=== PATIENT | female | born 1950 | race Caucasian/White ===

== ENCOUNTER 2020-05-03 23:59 | Observation (INO) ==
[2020-05-04] MEDS ORDERED: Morphine Sulfate 2 MG/ML SYRINGE IVP ONE (00:19)
[2020-05-04] MEDS ORDERED: 0.9 % Sodium Chloride 1,000 ML IVC STA (00:21)
[2020-05-04 00:57] LABS: Basophils % 0.2 %; Eosinophils % 0.1 %; Hematocrit 37.9 % (35.3-44.9); Hemoglobin 11.6 g/dL (11.5-15.4); Immature Granulocytes % 0.3 % (0-4); Lymphocytes # 2.7 K/mcL (0.6-4.6); Lymphocytes % 26.5 %; Mean Corpuscular HGB Conc 30.6 g/dL (31.6-35.5); Mean Corpuscular Volume 91.5 fL (83.0-100.0); Monocytes # 1.2 K/mcL (0.0-1.3); Monocytes % 11.6 %; Neutrophils # 6.3 K/mcL (1.6-8.9); Platelet Count 274 K/mcL (140-400); Red Blood Count 4.14 M/mcL (3.82-4.97); Red Cell Distribution Width 13.9 % (11.5-14.5); Segmented Neutrophils % 61.3 %; White Blood Count 10.3 K/mcL (4.3-11.1)
[2020-05-04 01:10] LABS: BUN/Creatinine Ratio 18 (6-26); Blood Urea Nitrogen 14 mg/dL (8-23); Calcium 9.3 mg/dL (8.6-10.3); Carbon Dioxide 27 mEq/L (23-29); Chloride 99 mEq/L (98-107); Glucose 127 mg/dL (70-105); Osmolality,Calculated 280 (280-300); Potassium 3.8 mEq/L (3.5-5.1); Sodium 134 mEq/L (136-145); eGFR For African Americans > 60 (> 60); eGFR For Non-African Americans > 60 (> 60)
[2020-05-04] MEDS ORDERED: Isovue-370 500 ML BOTTLE IVP ONE (02:35)
[2020-05-04] MEDS ORDERED: *HR* FentaNYL (PF) 100 MCG/2 ML VIAL IVP ONE (02:40)
[2020-05-04 03:22] LABS: INR 1.2; Prothrombin Time 13.7 Seconds (9.4-12.1)
[2020-05-04 03:25] LABS: Activated Partial Thrombo Time 26.8 Seconds (26.0-36.0)
[2020-05-04] MEDS ORDERED: *HR* Rivaroxaban 15 MG TABLET PO ONE (04:58)
[2020-05-04] MEDS ORDERED: Naloxone 0.4 MG/ML INJ IVP PRN (06:12)
[2020-05-04] MEDS ORDERED: *HR* HYDROcodone/Acet 5/325 mg TABLET PO PRN ×3 (06:12→15:21)
[2020-05-04] MEDS ORDERED: Acetaminophen 325 MG TABLET PO PRN (06:12)
[2020-05-04] MEDS ORDERED: Ondansetron 4 MG/2 ML VIAL IVP PRN (06:12)
[2020-05-04] MEDS: *HR* OxyCODONE Immed Rel 5 MG TABLET PO PRN ×4 (09:48→22:58)
[2020-05-04] MEDS ORDERED: Vancomycin 1,250 MG/262.5 ML IV.SOLN IVPB ONE (10:27)
[2020-05-04] MEDS: Piperacillin/Tazobactam 3.375 GM in 0.9 % Sodium Chloride Mini Bag 100 ML IVPB SCH ×2 (10:55→18:14)
[2020-05-04] MEDS ORDERED: Ampicillin/Sulbactam 1,500 MG in 0.9 % Sodium Chloride Mini Bag 100 ML IVPB SCH (12:00)
[2020-05-04] MEDS: *HR* Rivaroxaban 15 MG TABLET PO SCH ×2 (15:04→20:15)
[2020-05-04] MEDS ORDERED: *HR* OxyCODONE Immed Rel 5 MG TABLET PO PRN (15:11)
[2020-05-05] MEDS ORDERED: Vancomycin 1,250 MG/262.5 ML IV.SOLN IVPB SCH (02:00)
[2020-05-05 02:01] LABS: Basophils % 0.3 %; Eosinophils # 0.1 K/mcL (0.0-0.6); Hematocrit 31.3 % (35.3-44.9); Immature Granulocytes % 0.3 % (0-4); Lymphocytes # 1.9 K/mcL (0.6-4.6); Lymphocytes % 27.2 %; Mean Corpuscular HGB Conc 30.4 g/dL (31.6-35.5); Mean Corpuscular Hemoglobin 28.2 pg (28.0-33.3); Mean Corpuscular Volume 92.9 fL (83.0-100.0); Mean Platelet Volume 9.5 fL (9.4-12.4); Monocytes # 0.9 K/mcL (0.0-1.3); Monocytes % 12.7 %; Neutrophils # 4.2 K/mcL (1.6-8.9); Platelet Count 239 K/mcL (140-400); Red Blood Count 3.37 M/mcL (3.82-4.97); Segmented Neutrophils % 58.5 %; White Blood Count 7.1 K/mcL (4.3-11.1)
[2020-05-05 02:05] LABS: Hemoglobin 9.5 g/dL (11.5-15.4)
[2020-05-05 02:17] LABS: BUN/Creatinine Ratio 17 (6-26); Blood Urea Nitrogen 13 mg/dL (8-23); Calcium 8.6 mg/dL (8.6-10.3); Carbon Dioxide 25 mEq/L (23-29); Chloride 102 mEq/L (98-107); Glucose 113 mg/dL (70-105); Magnesium 1.6 mg/dL (1.6-2.6); Osmolality,Calculated 277 (280-300); Potassium 3.9 mEq/L (3.5-5.1); Sodium 133 mEq/L (136-145); eGFR For African Americans > 60 (> 60); eGFR For Non-African Americans > 60 (> 60)
[2020-05-05] MEDS: *HR* OxyCODONE Immed Rel 5 MG TABLET PO PRN ×3 (03:02→11:51)
[2020-05-05] MEDS: Piperacillin/Tazobactam 3.375 GM in 0.9 % Sodium Chloride Mini Bag 100 ML IVPB SCH ×2 (03:56→11:49)
[2020-05-05] MEDS: *HR* Rivaroxaban 15 MG TABLET PO SCH (07:42)
[2020-05-05 11:09] VITALS: BP 126/81
== END 2020-05-05 13:00 | disposition home or self-care (01) ==
LOC: 3NENU 23:59 → EMEROOARM 23:59 → 3NENU 05-04 05:52
PROVIDERS: ADMIT Family Medicine; ATTEND Family Medicine

== ENCOUNTER 2020-09-16 11:32 | Inpatient (IN) ==
[2020-09-16] MEDS ORDERED: CeFAZolin Syr 2,000MG/20 ML 2,000 MG/20 ML SYRINGE IVPB ONE (12:05)
[2020-09-16] MEDS ORDERED: Famotidine 20 MG/2 ML VIAL IVP ONE (12:07)
[2020-09-16] MEDS ORDERED: Acetaminophen IV 1,000 MG/100 ML INFUS..BTL IVPB ONE (12:07)
[2020-09-16] MEDS ORDERED: *HR* OxyCODONE Immed Rel 5 MG TABLET PO PRN ×2 (12:08→15:48)
[2020-09-16] MEDS ORDERED: Ondansetron 4 MG/2 ML VIAL IVP PRN ×2 (12:09→15:48)
[2020-09-16] MEDS ORDERED: Ringers Solution, Lactated 1,000 ML IVC SCH ×2 (12:15→15:48)
[2020-09-16] MEDS ORDERED: *HR* Midazolam HCl 2 MG/2 ML VIAL ONE (12:27)
[2020-09-16] MEDS ORDERED: Ropivacaine/PF 0.5% 30 ML VIAL ONE (12:28)
[2020-09-16] MEDS ORDERED: Dexamethasone 4 MG/ML VIAL ONE (13:03)
[2020-09-16] MEDS ORDERED: *HR* Propofol 200 MG/20 ML VIAL IVP ONE (13:03)
[2020-09-16] MEDS ORDERED: *HR* Succinylcholine 200 MG/10 ML VIAL IVP ONE (13:03)
[2020-09-16] MEDS ORDERED: Lidocaine -MPF 2% 2 ML VIAL ONE (13:03)
[2020-09-16] MEDS ORDERED: Ondansetron 4 MG/2 ML VIAL ONE (13:03)
[2020-09-16] MEDS ORDERED: ROPIVACAINE/PF/NS 0.25% 1 EACH SYRINGE INTRAART ONE (13:12)
[2020-09-16] MEDS ORDERED: Vancomycin 1,000 MG VIAL ONE (13:22)
[2020-09-16] MEDS ORDERED: Ethanol\\Acetic Acid\\Na Ace\\Ben 1,000 ML IRRIG.SOLN IR ONE (13:22)
[2020-09-16] MEDS ORDERED: Povidone-Iodine 45 ML, Sodium Chloride IRRigation 1,000 ML IR ONE (13:50)
[2020-09-16 15:45] LABS: Hematocrit 42.2 % (35.3-44.9); Hemoglobin 13.1 g/dL (11.5-15.4)
[2020-09-16] MEDS ORDERED: *HR* Dextrose 50 % in Water (Vial) 50 ML VIAL IVP PRN (15:48)
[2020-09-16] MEDS ORDERED: D5% in Water 1,000 ML IVC PRN (15:48)
[2020-09-16] MEDS ORDERED: Dextrose Gel 15 GM/37.5 ML TUBE PO PRN ×2 (15:48)
[2020-09-16] MEDS ORDERED: Naloxone 0.4 MG/ML INJ IVP PRN (15:48)
[2020-09-16] MEDS ORDERED: Sennosides 8.6 MG TABLET PO PRN (15:48)
[2020-09-16] MEDS ORDERED: *HR* OxyCODONE/APAP 5/325 TABLET PO PRN (15:48)
[2020-09-16] MEDS ORDERED: MOM Conc 10 ML UD.LIQ PO PRN (15:48)
[2020-09-16] MEDS: Gabapentin 300 MG CAPSULE PO SCH ×3 (16:39→16:51)
[2020-09-16] MEDS: Insulin LISPRO 300 UNITS/3 ML VIAL SQ SCH (16:39)
[2020-09-16] MEDS ORDERED: lisinopriL 20 MG TABLET PO SCH (21:00)
[2020-09-16] MEDS ORDERED: Insulin LISPRO 300 UNITS/3 ML VIAL SQ SCH (21:00)
[2020-09-16] MEDS: CeFAZolin 2 GM/120 ML BAG IVPB SCH (23:19)
[2020-09-17] MEDS: Gabapentin 300 MG CAPSULE PO SCH (07:40)
[2020-09-17] MEDS: CeFAZolin 2 GM/120 ML BAG IVPB SCH (07:40)
[2020-09-17] MEDS: Insulin LISPRO 300 UNITS/3 ML VIAL SQ SCH (08:00)
[2020-09-17] MEDS ORDERED: allopurinoL 100 MG TABLET PO SCH (09:00)
[2020-09-17] MEDS ORDERED: *HR* Enoxaparin 30 MG/0.3 ML SYRINGE SQ SCH (09:00)
[2020-09-17 09:22] LABS: BUN/Creatinine Ratio 21 (6-26); Blood Urea Nitrogen 20 mg/dL (8-23); Calcium 9.7 mg/dL (8.6-10.3); Carbon Dioxide 27 mEq/L (23-29); Chloride 103 mEq/L (98-107); Glucose 102 mg/dL (70-105); Osmolality,Calculated 291 (280-300); Sodium 139 mEq/L (136-145); eGFR For African Americans > 60 (> 60); eGFR For Non-African Americans 56 (> 60)
[2020-09-17 09:48] LABS: Hematocrit 43.4 % (35.3-44.9); Hemoglobin 13.2 g/dL (11.5-15.4)
[2020-09-17 10:48] VITALS: BP 110/76
== END 2020-09-17 12:15 | disposition home or self-care (01) | DRG 483 ==
LOC: SAMDAY 11:32 → 3NENU 15:35
PROVIDERS: ADMIT Orthopaedic Surgery; ATTEND Orthopaedic Surgery